=== PATIENT | female | born 1960 | race Caucasian/White ===

== ENCOUNTER → 2017-09-22 | Outpatient (CLI) | payer MEDICARE, OTHER ==
--- NOTE | 2017-09-22 12:18 | CTL ---
EXAMINATION TYPE: CT Low Dose Lung DATE OF EXAM ORDERED: 09/22/2017 HISTORY: Personal history of tobacco abuse. Lung cancer screening CT DLP: [address] CTDI: 2.99 mGy Automated exposure control for dose reduction was used. SCREENING VISIT: Initial COMPARISON: None TECHNIQUE: Low dose computed tomography scan was performed through the chest at 1 mm thick sections a nd reconstructed images in the coronal plane at [address] DIAGNOSTIC QUALITY: Limited, but interpretable FINDINGS: LUNG NODULES: No discrete pulmonary nodules are seen, however exam is limited secondary to patient [place] dy habitus. LUNGS: COPD: Severity: Mild centrilobular Fibrosis: Severity: None Lymph nodes: Nonenlarged Other findings: Multifocal pleural parenchymal scarring is noted RIGHT PLEURAL SPACE: Effusion: None Calcification: None Thickening: None Pneumothorax: None LEFT PLEURAL SPACE: Effusion: None Calcification: None Thickening: None Pneumothorax: None HEART: Heart Size: Upper limits of normal Coronary calcification: Moderate to severe three-vessel Pericardial effusion: None OTHER FINDINGS: Upper abdomen: Severely limited but grossly unremarkable. Bony thorax: Moderate multilevel degenerative changes. Osseous structures appear intact. Supraclavicular region: Thyroid gland appears enlarged and substernal. IMPRESSION: 1. No discrete pulmonary nodules, however the exam is limited due to patient body habitus. Annual low dose CT remains a recommendation. 2. Moderate to severe three-vessel coronary artery calcifications, a marker of coronary artery diseas e. 3. Mild centrilobular emphysematous change. FOLLOW UP CT CHEST RECOMMENDATION: Annual low dose CT is recommended. CT LUNG RAD: Lung-Rad 1 Negative
== END | disposition home or self-care (01) ==
LOC: RADCTMAIN 11:40
PROVIDERS: ATTEND Family Medicine
DX: Z12.2 Encounter for screening for malignant neoplasm of respiratory organs (principal); J43.2 Centrilobular emphysema; I25.10 Atherosclerotic heart disease of native coronary artery without angina pectoris; Z87.891 Personal history of nicotine dependence